=== PATIENT | male | born 1990 | race Two or more races ===

== ENCOUNTER 2018-06-14 08:21 | Emergency (ER) | payer SELFPAY ==
[~2018-06-14] VITALS: Ht 172.7 cm; Wt 81.6 kg
--- NOTE | 2018-06-14 08:26 | NUR ---
PT AMBULATES TO BED 8
[2018-06-14 08:27] VITALS: BP 134/84
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
--- NOTE | 2018-06-14 09:07 | NUR ---
Patient being evaluated by physician at bedside.
--- NOTE | 2018-06-14 09:25 | NUR ---
PT TAKEN TO CT
--- NOTE | 2018-06-14 09:32 | NUR ---
PT RETURNED FROM CT
[2018-06-14 11:17] VITALS: BP 132/81
--- NOTE | 2018-06-14 11:17 | NUR ---
Patient discharged with v/s stable. Written and verbal after care instructions given and explained. Patient alert, oriented and verbalized understanding of instructions. Ambulatory with steady gait. All questions addressed prior to discharge. ID band removed. Patient advised to follow up with PMD. Rx of clindamycin ans motrin given. Patient educated on indication of medication including possible reaction and side effects. Opportunity to ask questions provided and answered.
== END 2018-06-14 11:17 | disposition home or self-care (01) ==
LOC: MED 08:21
DX: S02.2XXA Fracture of nasal bones, initial encounter for closed fracture (principal); G20 Parkinson's disease; Z88.0 Allergy status to penicillin; Y04.2XXA Assault by strike against or bumped into by another person, initial encounter; Y93.89 Activity, other specified; Y92.488 Other paved roadways as the place of occurrence of the external cause; Y99.8 Other external cause status
CPT/HCPCS: 70486; 90471; 90715; 99283; 99284